=== PATIENT | female | born 1970 | race Caucasian/White ===

== ENCOUNTER 2023-11-04 10:15 | Emergency (ER) | payer OTHER ==
[~2023-11-04] VITALS: Ht 162.6 cm; Wt 67.1 kg
[2023-11-04] MEDS ORDERED: Ketamine HCl 100 MG / ML 5ML Vial IV ONE (11:40)
[2023-11-04] MEDS ORDERED: Midazolam HCL 1 MG/ML 5MLVIAL IV ONE (11:40)
[2023-11-04] MEDS ORDERED: NS 1,000 ML IV SCH (11:40)
[2023-11-04] MEDS ORDERED: Propofol 10mg/ml 20 ml Vial (Procedural) IV SCH (11:40)
[2023-11-04] MEDS ORDERED: ZOLOFT50 MG PO (12:31)
[2023-11-04] MEDS ORDERED: AMLODIPINE BESYL5 MG PO (12:31)
[2023-11-04] MEDS ORDERED: OXAYDO5 M2 PO (14:00)
== END 2023-11-04 14:15 | disposition home or self-care (01) ==
LOC: ER 10:15
DX: S52.502A Unspecified fracture of the lower end of left radius, initial encounter for closed fracture (principal); S52.602A Unspecified fracture of lower end of left ulna, initial encounter for closed fracture; W01.0XXA Fall on same level from slipping, tripping and stumbling without subsequent striking against object, initial encounter
CPT/HCPCS: 25605; 73100; 73110; 76000; 99156; 99283-25; J2250; J2704; J7030